=== PATIENT | female | born 1985 | race Caucasian/White ===

== ENCOUNTER 2019-12-29 21:12 | Emergency (ER) | payer OTHER ==
--- NOTE | 2019-12-29 21:28 | ED Physician Documentation ---
History of Present Illness - Stated complaint Stated Complaint: LT LEG NUMBNESS - Chief complaint Chief Complaint: Ext Problem - History obtained from History obtained from: Patient - History of Present Illness Timing: Enter time (18:30), Today Pain level now: 1 Improved by: nothing Worsened by: no exacerbating factors - Additonal information Additional information: c/o LLE numbness first noticed 6:30 PM tonight when she was in bathtub and started to shave her legs; she did not notice the numbness until she ran the razor over her LLE and thus says she can not say with certainty if the numbness was present before this action. Denies h/o similar symptoms. The numbness is o nly from immediately distal to left knee and down to distal pre-tibial/fibular surfaces, anterior aspect but sparing of posterior aspect. She also notes some minimal/mild painful discomfort at left knee and just proximal to left knee. She has some degree of constant/chronic back pain, upper more than lower, but this is not new nor worse than usual. Denies recent injury, denies long car trips or recent airplane travel Review of Systems Skin: denies: Rash Musculoskeletal: reports: Back pain, Extremity pain. denies: Neck pain, Extr emity swelling, Joint swelling, Pain with weight bearing Neurologic: reports: Numbness. 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 HEENT: None Psych: None Musculoskeletal: None Derm: None - Past Surgical History Past Surgical History: No - Allergies Allergies/Adverse Reactions: Allergies Allergy/AdvReac Type Severity Reaction Status Date / Time No Known Drug Allergies Allergy Verified 12/29/19 21:25 - Social History Does the pt smoke?: No Smoking Status: Never smoker Does the pt drink ETOH?: Yes Does the pt have substance abuse?: No - Immunizations Immunizations are current?: Yes - POLST Patient has POLST: No PD ED PE NORMAL - Vitals Vital signs reviewed: Yes - General General: Alert and oriented X 3, No acute distress, Well developed/nourished - HEENT HEENT: PERRL, EOMI - Back Back: No spinal TTP - Derm Derm: Normal color, Warm and dry, No rash - Extremities Extremities: No deformity, No tenderness to palpate, Normal ROM s pain, No edema, No calf tenderness / cord - Neuro Neuro: No motor deficit, Other (subjective decreased LTS left anterior (i ncluding anterolateral and anteromedial)) Eye Opening: Spontaneous Motor: Obeys Commands Verbal: Oriented GCS Score: 15 Results - Vitals Vitals: Vital Signs - 24 hr 12/29/19 12/29/19 21:23 23:46 Temperature 36.7 C Heart Rate 73 70 Respiratory 16 16 Rate Blood Pressure 135/70 H 131/72 H O2 Saturation 97 99 Oxygen O2 Source Room air - Labs Labs: Laboratory Tests 12/29/19 12/29/19 22:43 22:43 WBC 10.6 RBC 4.49 Hgb 14.1 Hct 41.3 MCV 92.0 MCH 31.4 H MCHC 34.1 RDW 12.8 Plt Count 307 MPV 9.0 Neut # (Auto) 6.5 Lymph # (Auto) 2.8 [place] # (Auto) 1.0 Eos # (Auto) 0.2 Baso # (Auto) 0.0 Absolute Nucleated RBC 0.00 Nucleated RBC % 0.0 Sodium 138 Potassium 4.0 Chloride 101 Carbon Dioxide 24 Anion Gap 13.0 BUN 11 Creatinine 1.0 Estimated GFR (MDRD) 63 L Glucose 96 Calcium 9.2 Total Bilirubin 0.5 AST 70 H ALT 132 H Alkaline Phosphatase 57 Total Protein 7.5 Albumin 4.4 Globulin 3.1 Albumin/Globulin Ratio 1.4 Lipase 34 - Rads (name of study) LLE doppler US Radiology: Prelim report reviewed, See rad report PD MEDICAL DECISION MAKING - ED course Complexity details: reviewed results, re-evaluated patient, considered differential, d/w patient ED course: paresthesia of LLE that is not in a distribution 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 she also has ongoing back pain and some mild discomfort of the LLE proximal to the paresthesia; possible peripheral impingement such as spinal stenosis. Further emergent testing beyond US and basic blood tests not indicated at this time. Departure - Departure Disposition: 01 Home, Self Care Clinical Impression: Paresthesia of left leg Condition: Good Instructions: ED Paraesthesias Comments: Your liver enzymes (AST, ALT) were abnormal (elevated), but this is a slight/mild abnormality and unrelated to your symptoms. You should avoid alcohol and acetaminophen-containing products such as Tylenol, and follow up with your primary care provider for reevaluation of this finding, as well as to discuss your primary symptom of left leg numbness. Discharge Date/Time: 12/29/19 23:47
[2019-12-29 22:49] LABS: BASOPHILS % (AUTO) 0.4 %; EOSINOPHILS # (AUTO) 0.2 10^3/uL (0.0-0.7); EOSINOPHILS % (AUTO) 1.4 %; HGB - HEMOGLOBIN 14.1 g/dL (12.0-16.0); LYMPHOCYTES # (AUTO) 2.8 10^3/uL (1.5-3.5); LYMPHOCYTES % (AUTO) 26.7 %; MEAN CORPUSCULAR HEMOGLOBIN 31.4 pg (27.0-31.0); MEAN CORPUSCULAR HGB CONC 34.1 g/dL (32.0-36.0); MONOCYTES % (AUTO) 9.5 %; NEUTROPHILS # (AUTO) 6.5 10^3/uL (1.5-6.6); NEUTROPHILS % (AUTO) 61.6 %; PLT - PLATELET COUNT 307 10^3/uL (130-450); RED BLOOD COUNT 4.49 10^6/uL (4.20-5.40); RED CELL DISTRIBUTION WIDTH 12.8 % (12.0-15.0); WHITE BLOOD COUNT 10.6 x10^3/uL (4.8-10.8)
[2019-12-29 23:03] LABS: ALBUMIN 4.4 g/dL (3.2-5.5); ALBUMIN/GLOBULIN RATIO 1.4 (1.0-2.2); BILIRUBIN,TOTAL 0.5 mg/dL (0.2-1.0); CALCIUM 9.2 mg/dL (8.5-10.3); TOTAL PROTEIN 7.5 g/dL (6.7-8.2)
[2019-12-29 23:47] VITALS: BP 131/72
--- NOTE | 2019-12-30 08:39 | Ultrasound Report ---
PROCEDURE: Duplex Ext Veins Left INDICATIONS: LLE numbness, pain TECHNIQUE: Real-time imaging, as well as color and pulse Doppler interrogation, were performed of the lower extr emity deep veins from the inguinal ligament to the popliteal fossa. COMPARISON: None. FINDINGS: The deep veins are normally compressible, and free of intraluminal thrombus. Color and pu lse Doppler demonstrate normal phasic intraluminal flow. There is normal augmentation response to di stal compression maneuver. IMPRESSION: No findings of deep venous thrombosis are seen. Note: No significant discrepancy from the preliminary report. Reviewed by: Mohan Flores MD on 12/30/2019 7:37 AM [facility] Approved by: Mohan Flores MD on 12/30/2019 7:37 AM [facility] Station ID: [id number]
== END 2019-12-29 23:47 | disposition home or self-care (01) ==
LOC: ED 21:12
DX: R20.0 Anesthesia of skin (principal); R74.01 Elevation of levels of liver transaminase levels
CPT/HCPCS: 36415; 80053; 83690; 85025; 99282; 99284

== ENCOUNTER 2022-04-25 17:27 | Emergency (ER) | payer OTHER ==
--- NOTE | 2022-04-25 17:46 | ED Physician Documentation ---
PD HPI CHEST PAIN - Stated complaint Stated Complaint: CHEST PAINS - Chief complaint Chief Complaint: Cardiac - History obtained from History obtained from: Patient - History of Present Illness Pain level max: 9 Pain level now: 4 Quality: Pain Radiation: Back Associated symptoms: No: Shortness of air, Diaphoresis, Nausea, Vomiting, Feeling faint / dizzy, General Weakness, Palpitations, Cough - Additional information Additional information: Patient is a 36-year-old female who presents to the emergency department with chest pain. She states that this has been ongoing for "a while". She states that it started worsening last night. She tried Maalox without relief. She reports the pain comes in waves and starts in her epigastric region and radiates up into the chest. Worse with eating and drinking. Nothing makes it better. Radiates to the back. No vomiting or nausea. No cardiac history. She does drink 2 to 3 glasses of alcohol per day. She is not on any medications at home. 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 : None HEENT: None Psych: None Musculoskeletal: None Derm: None - Past Surgical History Past Surgical History: No - Present Medications Home Medications: Ambulatory Orders Medication Instructions Recorded Confirmed Esomeprazole Magnesium [Nexium] 40 mg PO DAILY #30 cap 04/25/22 Famotidine [Pepcid] 20 mg PO BID #60 tablet 04/25/22 HYDROcod/ACETAM 5/325 [[place] 5/325] 1 - 2 ea PO Q6H PRN #14 tablet 04/25/22 Sucralfate [Carafate] 1 gm PO ACHS #60 tablet 04/25/22 - Allergies Allergies/Adverse Reactions: Allergies Allergy/AdvReac Type Severity Reaction Status Date / Time No Known Drug Allergies Allergy Verified 12/29/19 21:25 - Social History Does the pt smoke?: No Smoking Status: Never smoker Does the pt drink ETOH?: Yes Does the pt have substance abuse?: No - Immunizations Immunizations are current?: Yes - POLST Patient has POLST: No PD ED PE NORMAL - Vitals Vital signs reviewed: Yes - General General: Alert and oriented X 3, No acute distress - HEENT HEENT: PERRL, Moist mucous membranes - Neck Neck: Supple, no meningeal sign - Cardiac Cardiac: RRR, Strong equal pulses - Respiratory Respiratory: No respiratory distress, Clear bilaterally - Abdomen Abdomen: Soft, Non distended, Other (Tender palpation epigastric and mild right upper quadrant tenderness to palpation. No peritoneal signs.) - Back Back: No spinal TTP - Derm Derm: Warm and dry - Extremities Extremities: No edema, No calf tenderness / cord - Neuro Neuro: Alert and oriented X 3 - Psych Psych: Normal mood, Normal affect Results - Vitals Vitals: Vital Signs - 24 hr 04/25/22 04/25/22 04/25/22 17:36 17:50 19:15 Temperature 36.8 C 36.3 C L Heart Rate 65 69 60 Respiratory 13 16 25 H Rate Blood Pressure 130/76 109/66 O2 Saturation 100 99 99 04/25/22 20:05 Temperature Heart Rate 64 Respiratory 15 Rate Blood Pressure 108/74 O2 Saturation 100 Oxygen O2 Source Room air - EKG (time done) 1733 Rate: Rate (enter#) (65) Rhythm: NSR [place]: Normal Intervals: Normal [place] QRS: Normal Ischemia: Normal ST segments - Labs Labs: Laboratory Tests 04/25/22 04/25/22 04/25/22 17:45 17:45 17:45 WBC 11.1 H RBC 4.68 Hgb 14.5 Hct 42.9 MCV 91.7 MCH 31.0 MCHC 33.8 RDW 12.5 Plt Count 334 MPV 9.3 Neut # (Auto) 6.6 Lymph # (Auto) 2.7 [place] # (Auto) 1.4 H Eos # (Auto) 0.3 Baso # (Auto) 0.1 Absolute Nucleated RBC 0.00 Nucleated RBC % 0.0 Sodium 135 Potassium 3.8 Chloride 101 Carbon Dioxide 25 Anion Gap 9.0 BUN 16 Creatinine 0.8 Estimated GFR (MDRD) 80 L Glucose 113 H Calcium 9.6 Total Bilirubin 0.6 AST 40 ALT 78 H Alkaline Phosphatase 61 Troponin I High Sens < 2.3 L Total Protein 7.6 Albumin 4.1 Globulin 3.5 Albumin/Globulin Ratio 1.2 Lipase 50 - Rads (name of study) Chest x-ray Radiology: Final report received, See rad report Right upper quadrant ultrasound Radiology: Final report received, See rad report PD Medical Decision Making - ED course Complexity details: reviewed results, re-evaluated patient, considered differential (No ST elevation SC, no aortic dissection, no PE, no tension pneumothorax, no aortic aneurysm), d/w patient ED course: 36-year-old female with chest pain. No acute findings on EKG, chest x-ray or ultrasound other than a mild fatty liver. Minimally elevated white blood cell count. High-sensitivity troponin is negative. Lipase is negative. The CMP does show a mild elevation of the ALT. Pain greatly improved with a GI cocktail. We will place on Carafate, Pepcid, and Nexium. We will also prescribe a small amount of pain medication for home. Recommend she follow-up with the GI for an endoscopy. Likely that this is related to reflux. Recommend she refrain from coffee, alcohol, fried foods, spicy foods. Patient counseled regarding signs and symptoms for which I believe and urgent re-evaluation would be necessary. Patient with good understanding of and agreement to plan and is comfortable going home at this time This document was made in part using voice recognition software. While efforts are made to proofread this document, sound alike and grammatical errors may occur. Departure - Departure Disposition: 01 Home, Self Care Clinical Impression: Chest pain Qualifiers: Chest pain type: unspecified Qualified Code(s): R07.9 - Chest pain, unspecified GERD (gastroesophageal reflux disease) Qualifiers: Esophagitis presence: with esophagitis Esophagitis bleeding: without hemorrhage Qualified Code(s): K21.00 - Gastro-esophageal reflux disease with esophagitis, without bleeding Condition: Good Instructions: ED Chest Pain Atypical Unkn Cause, ED GERD Follow-Up: your,doctor in 1 week [Other] [facility] [place] [Provider Group] [facility] [Provider Group] [facility] [Provider Group] [facility] [Provider Group] Derek Sosa MD [Provider Admit Priv/Credential] - Prescriptions: Sucralfate [Carafate] 1 gm PO ACHS #60 tablet Esomeprazole Magnesium [Nexium] 40 mg PO DAILY #30 cap HYDROcod/ACETAM 5/325 [[place] 5/325] 1 - 2 ea PO Q6H PRN #14 tablet PRN Reason: Pain Famotidine [Pepcid] 20 mg PO BID #60 tablet Comments: The cause of your symptoms is unclear today, but could be due to something such as gastroesophageal reflux disease. It is recommended that you follow-up with GI for an endoscopy. The general surgeons at this hospital do perform endoscopies. There are GI physicians in [place]. We will start you on medications for this. Your medications were sent to [facility] in [place]. Please return if you worsen. I am prescribing a short course of narcotic pain medication for you. These are potentially dangerous and addictive medications that should be used carefully. These medications may constipate you. Take an [id number] stool softener (docusate) twice daily with plenty of water while taking these medications. If you go 24 hours without a bowel movement, take [id number] miralax, per package instructions. Do not drink or drive while taking these medications. If you received narcotic or sedating medications while in the emergency department, do not drive for 24 hours. Store this medication in a safe, secure place and out of reach of children. It is a violation of federal law to give or sell this medication to another person or to use in a manner other than prescribed. The ED will not refill narcotic prescriptions, including prescriptions lost or stolen. To dispose of unwanted medications: 1. [facility] at [address] [place] [address] in [place] has a medication drop box. They accept prescription medications (in pill form) Wednesday through Wednesday 9:00 a.m. to 5:00 p.m. 2. The [facility] [employer] accepts prescription medications (in pill form only) for disposal year round. Call for more information. 3. Contact the [facility] for the next [facility] sponsored prescription drug collection event. , [phone], or [phone]; Discharge Date/Time: 04/25/22 20:10
[2022-04-25 17:51] LABS: BASOPHILS # (AUTO) 0.1 10^3/uL (0.0-0.1); BASOPHILS % (AUTO) 0.5 %; EOSINOPHILS # (AUTO) 0.3 10^3/uL (0.0-0.7); EOSINOPHILS % (AUTO) 2.3 %; HCT - HEMATOCRIT 42.9 % (37.0-47.0); HGB - HEMOGLOBIN 14.5 g/dL (12.0-16.0); LYMPHOCYTES # (AUTO) 2.7 10^3/uL (1.5-3.5); LYMPHOCYTES % (AUTO) 24.7 %; MEAN CORPUSCULAR HGB CONC 33.8 g/dL (32.0-36.0); MEAN CORPUSCULAR VOLUME 91.7 fL (81.0-99.0); MEAN PLATELET VOLUME 9.3 fL (7.9-10.8); MONOCYTES # (AUTO) 1.4 10^3/uL (0.0-1.0); MONOCYTES % (AUTO) 12.5 %; NEUTROPHILS # (AUTO) 6.6 10^3/uL (1.5-6.6); NEUTROPHILS % (AUTO) 59.8 %; PLT - PLATELET COUNT 334 10^3/uL (130-450); RED BLOOD COUNT 4.68 10^6/uL (4.20-5.40); RED CELL DISTRIBUTION WIDTH 12.5 % (12.0-15.0); WHITE BLOOD COUNT 11.1 x10^3/uL (4.8-10.8)
[2022-04-25 18:04] LABS: ALBUMIN 4.1 g/dL (3.2-5.5); ALBUMIN/GLOBULIN RATIO 1.2 (1.0-2.2); BILIRUBIN,TOTAL 0.6 mg/dL (0.2-1.0); CALCIUM 9.6 mg/dL (8.5-10.3); CREATININE 0.8 mg/dL (0.4-1.0); POTASSIUM 3.8 mmol/L (3.5-5.0); TOTAL PROTEIN 7.6 g/dL (6.7-8.2)
--- NOTE | 2022-04-25 18:12 | XRAY Report ---
PROCEDURE: Chest 1 View X-Ray INDICATIONS: Chest pain TECHNIQUE: One view of the chest was acquired. COMPARISON: None. FINDINGS: Surgical changes and devices: None. Lungs and pleura: No pleural effusions or pneumothorax. Lungs are clear. Mediastinum: Mediastinal contours appear normal. Heart size is normal. Bones and chest wall: No suspicious bony lesions. Overlying soft tissues appear unremarkable. IMPRESSION: Portable chest within normal limits for age. Reviewed by: Mohan Flores MD on 04/25/2022 5:11 PM [facility] Approved by: Mohan Flores MD on 04/25/2022 5:11 PM [facility] Station ID: [id number]
--- NOTE | 2022-04-25 19:22 | Ultrasound Report ---
PROCEDURE: Abdomen Limited INDICATIONS: RUQ abd pain TECHNIQUE: Real-time scanning was performed of the abdominal, with image documentation. COMPARISON: None. FINDINGS: Liver: Measures 16.3 cm. Increased echogenicity. Focal fatty sparing noted. Gallbladder: Contracted. No stones or sludge. No gallbladder wall thickening. No pericholecystic flui d. Negative sonographic Begum sign. Biliary ducts: Intrahepatic bile ducts are non-dilated. Extrahepatic bile duct caliber measures 2.2 mm. Normal is 6-7 mm or less in diameter, or 10 mm or less post-cholecystectomy. Pancreas: Visualized portions of the pancreas are sonographically normal. Tail was not well seen. Right kidney: Measures 10.7 cm. Cortex 1.4 cm. No hydronephrosis. IMPRESSION: 1. Contracted gallbladder. No secondary signs of acute cholecystitis. No gallstones seen. 2. Increased echogenicity of the hepatic parenchyma. This is most commonly seen in hepatic steatosis. Other forms of hepatocellular disease could have a similar appearance. Reviewed by: Kevin Pérez MD on 04/25/2022 7:21 PM PST Approved by: Kevin Pérez MD on 04/25/2022 7:21 PM PST Station ID: [id number]
[2022-04-25] MEDS ORDERED: LIDOCAINE VISCOUS 2% 15 ML ORAL SYRINGE MM STA (19:26)
[2022-04-25] MEDS ORDERED: FAMOTIDINE 20 MG TABLET PO STA (19:26)
[2022-04-25] MEDS ORDERED: MAG HYDROX/AL HYDROX/SIMETH 30 ML UDC PO STA (19:26)
[2022-04-25] MEDS ORDERED: SUCRALFATE 1 GM/10 ML UDC PO STA (19:26)
[2022-04-25] MEDS ORDERED: HYDROcod/ACET 5/325 Prepack 4 PO STA (19:54)
[2022-04-25 20:18] VITALS: BP 108/74
== END 2022-04-25 20:10 | disposition home or self-care (01) ==
LOC: ED 17:27
DX: R07.9 Chest pain, unspecified (principal); K21.00 Gastro-esophageal reflux disease with esophagitis, without bleeding
CPT/HCPCS: 36415; 71045; 76705; 80053; 83690; 84484; 85025; 93005; 99284; A9270

== ENCOUNTER 2022-07-03 10:51 | Outpatient (CLI) | payer OTHER ==
[2022-07-03 14:33] LABS: BASOPHILS % (AUTO) 0.4 %; EOSINOPHILS % (AUTO) 1.1 %; HCT - HEMATOCRIT 35.8 % (37.0-47.0); HGB - HEMOGLOBIN 11.9 g/dL (12.0-16.0); LYMPHOCYTES % (AUTO) 15.8 %; MEAN CORPUSCULAR HEMOGLOBIN 31.7 pg (27.0-31.0); MEAN CORPUSCULAR HGB CONC 33.2 g/dL (32.0-36.0); MEAN CORPUSCULAR VOLUME 95.5 fL (81.0-99.0); MEAN PLATELET VOLUME 10.3 fL (7.9-10.8); MONOCYTES % (AUTO) 12.4 %; NEUTROPHILS % (AUTO) 69.8 %; PLT - PLATELET COUNT 365 10^3/uL (130-450); RED BLOOD COUNT 3.75 10^6/uL (4.20-5.40); RED CELL DISTRIBUTION WIDTH 13.2 % (12.0-15.0); WHITE BLOOD COUNT 13.3 x10^3/uL (4.8-10.8)
[2022-07-03 14:39] LABS: SLIDE REVIEW? Indicated
[2022-07-03 15:13] LABS: ABNORMAL LYMPHS % (MANUAL) 0 %; BAND NEUTROPHILS % (MANUAL) 0 %
[2022-07-03 15:18] LABS: EOSINOPHILS # (MANUAL) 0.3 10^3/uL (0-0.7); LYMPHOCYTES # (MANUAL) 1.9 10^3/uL (1.5-3.5); LYMPHOCYTES % (MANUAL) 14 %; MONOCYTES # (MANUAL) 1.9 10^3/uL (0.0-1.0); NEUTROPHILS # (MANUAL) 9.3 10^3/uL (1.5-6.6)
[2022-07-03 15:19] LABS: DIFFERENTIAL COMMENT MANUAL DIFFERENTIAL; PLATELET ESTIMATE, MANUAL NORMAL (130-450,000) (NORMAL); PLATELET MORPHOLOGY NORMAL APPEARANCE (NORMAL); RBC MORPHOLOGY (MULTIPLE) NORMAL APPEARANCE (NORMAL)
[2022-07-03 15:28] LABS: ALBUMIN 3.9 g/dL (3.2-5.5); ALBUMIN/GLOBULIN RATIO 1.1 (1.0-2.2); ALKALINE PHOSPHATASE 130 IU/L (42-121); ALT ALANINE AMINOTRANSFERASE 592 IU/L (10-60); AST ASPARTATE AMINOTRANSFERASE 255 IU/L (10-42); BILIRUBIN,TOTAL 0.9 mg/dL (0.2-1.0); BUN - BLOOD UREA NITROGEN 10 mg/dL (6-20); CALCIUM 8.9 mg/dL (8.5-10.3); CARBON DIOXIDE - CO2 25 mmol/L (21-32); CHLORIDE 106 mmol/L (101-111); CHOL/HDL RATIO 2.6 (<4.4); CHOLESTEROL 207 mg/dL; CREATININE 0.8 mg/dL (0.4-1.0); GFR - MDRD 80 (>89); GLUCOSE 114 mg/dL (70-100); HDL CHOLESTEROL 79 mg/dL; LDL CHOLESTEROL,CALCULATED 115 mg/dL; LDL/HDL RATIO 1.5 (<4.4); SODIUM 137 mmol/L (135-145); TOTAL PROTEIN 7.6 g/dL (6.7-8.2); TRIGLYCERIDES 67 mg/dL; VLDL CHOLESTEROL 13 mg/dL
[2022-07-03 15:37] LABS: THYROID STIMULATING HORMONE 2.46 uIU/mL (0.34-5.60)
[2022-07-03 22:24] LABS: ESTIMATED AVERAGE GLUCOSE 97 mg/dL (70-100)
== END 2022-07-03 10:52 | disposition home or self-care (01) ==
LOC: LAB.S 10:51
DX: Z00.00 Encounter for general adult medical examination without abnormal findings (principal); R63.5 Abnormal weight gain; Z83.3 Family history of diabetes mellitus
CPT/HCPCS: 36415; 80053; 80061; 83036; 83525; 83721; 84443; 85025

== ENCOUNTER 2022-07-08 11:12 | Outpatient (CLI) | payer OTHER ==
[2022-07-08 14:33] LABS: BASOPHILS # (AUTO) 0.1 10^3/uL (0.0-0.1); BASOPHILS % (AUTO) 0.9 %; EOSINOPHILS # (AUTO) 0.3 10^3/uL (0.0-0.7); EOSINOPHILS % (AUTO) 3.2 %; HCT - HEMATOCRIT 43.8 % (37.0-47.0); HGB - HEMOGLOBIN 14.5 g/dL (12.0-16.0); LYMPHOCYTES # (AUTO) 2.7 10^3/uL (1.5-3.5); LYMPHOCYTES % (AUTO) 33.9 %; MEAN CORPUSCULAR HEMOGLOBIN 31.1 pg (27.0-31.0); MEAN CORPUSCULAR HGB CONC 33.1 g/dL (32.0-36.0); MEAN PLATELET VOLUME 9.8 fL (7.9-10.8); MONOCYTES # (AUTO) 0.8 10^3/uL (0.0-1.0); MONOCYTES % (AUTO) 9.7 %; NEUTROPHILS # (AUTO) 4.1 10^3/uL (1.5-6.6); NEUTROPHILS % (AUTO) 51.8 %; PLT - PLATELET COUNT 449 10^3/uL (130-450); RED BLOOD COUNT 4.66 10^6/uL (4.20-5.40); RED CELL DISTRIBUTION WIDTH 12.9 % (12.0-15.0); WHITE BLOOD COUNT 7.9 x10^3/uL (4.8-10.8)
[2022-07-08 15:00] LABS: ALBUMIN 4.4 g/dL (3.2-5.5); ALBUMIN/GLOBULIN RATIO 1.2 (1.0-2.2); BILIRUBIN,TOTAL 0.9 mg/dL (0.2-1.0); CALCIUM 9.6 mg/dL (8.5-10.3); POTASSIUM 4.1 mmol/L (3.5-5.0); TOTAL PROTEIN 8.1 g/dL (6.7-8.2)
[2022-07-09 10:09] LABS: HBsAG SCREEN Negative (Negative); HCV AB Non Reactive (Non Reactive); HEPATITIS B CORE IGM AB Negative (Negative)
== END 2022-07-08 11:13 | disposition home or self-care (01) ==
LOC: LAB.S 11:12
PROVIDERS: ATTEND Physician Assistant
DX: R94.5 Abnormal results of liver function studies (principal)
CPT/HCPCS: 36415; 80053; 80074; 82977; 83540; 84466; 85025